=== PATIENT | female | born 1970 | race Caucasian/White ===

== ENCOUNTER → 2016-05-18 | Outpatient (CLI) | payer BC ==
[~2016-05-18] MED LIST: ALPR0.25 PO; ASPI81CH2 PO; CALC500C70 PO; CETI10CH PO; CYAN500T13 PO; ESCI1TAB10 PO; PYRI100T4 PO; TOPI100T20 PO; TOPI50TA16 PO
--- NOTE | 2016-05-18 16:34 | MAMMOGRAPHY REPORT ---
BILATERAL DIGITAL SCREENING MAMMOGRAM TOMOSYNTHESIS WITH CAD: 05/18/2016 CLINICAL HISTORY: Routine screening. Patient has no complaints. TECHNIQUE: Breast tomosynthesis in addition to standard 2D mammography was performed. Current study was also evaluated with a Computer Aided Detection (CAD) system. COMPARISON: Comparison is made to exams dated: 05/17/2015 mammogram, 05/14/2014 mammogram, 03/14/2013 ultrasound, 10/17/2011 ultrasound, and 10/17/2011 mammogram - [facility]. BREAST COMPOSITION: There are scattered areas of fibroglandular density in both breasts. FINDINGS: No suspicious masses, calcifications, or areas of architectural distortion are noted in e ither breast. There has been no significant interval change compared to prior exams. IMPRESSION: ACR BI-RADS CATEGORY 1: NEGATIVE There is no mammographic evidence of malignancy. A 1 year screening mammogram is recommended. The p atient will receive written notification of the results. Approximately 10% of breast cancers are not detected with mammography. A negative mammographic repor t should not delay biopsy if a clinically suggestive mass is present. Sarah Plummer M.D. /:05/18/2016 16:18:34 Behaviorist: Tonia CHANG(R)(M), [facility] letter sent: Normal 1/2 BI-RADS Code: ACR BI-RADS Category 1: Negative
== END | disposition home or self-care (01) ==
LOC: C.MAMM 14:45
PROVIDERS: ATTEND Family Medicine
DX: Z12.31 Encounter for screening mammogram for malignant neoplasm of breast (principal)

== ENCOUNTER → 2017-05-21 | Outpatient (CLI) | payer OTHER ==
--- NOTE | 2017-05-21 15:41 | MAMMOGRAPHY REPORT ---
BILATERAL DIGITAL SCREENING MAMMOGRAM TOMOSYNTHESIS WITH CAD: 05/21/2017 CLINICAL HISTORY: Routine screening. Patient has no complaints. TECHNIQUE: Breast tomosynthesis in addition to standard 2D mammography was performed. Current study was also evaluated with a Computer Aided Detection (CAD) system. COMPARISON: Comparison is made to exams dated: 05/18/2016 mammogram, 05/17/2015 mammogram, 05/14/2014 ma mmogram, 03/14/2013 mammogram, 03/14/2013 ultrasound, and 10/17/2011 ultrasound - [facility]. BREAST COMPOSITION: There are scattered areas of fibroglandular density in both breasts. FINDINGS: The parenchymal pattern is unchanged. No developing mass, architectural distortion or clus ter of suspicious microcalcifications is seen in either breast. IMPRESSION: ACR BI-RADS CATEGORY 2: BENIGN There is no mammographic evidence of malignancy. A 1 year screening mammogram is recommended. The pa tient will receive written notification of the results. Approximately 10% of breast cancers are not detected with mammography. A negative mammographic report should not delay biopsy if a clinically suggestive mass is present. Nakita Quiles M.D. ay/:05/21/2017 14:45:49 Manager Acquisition: Melissa Baeza, [facility] letter sent: Normal 1/2 BI-RADS Code: ACR BI-RADS Category 2: Benign
== END | disposition home or self-care (01) ==
LOC: C.MAMM 14:23
PROVIDERS: ATTEND Family Medicine
DX: Z12.31 Encounter for screening mammogram for malignant neoplasm of breast (principal)

== ENCOUNTER 2022-11-29 05:49 | Observation (INO) ==
--- NOTE | 2022-11-23 10:12 | Anesthesiology Consultation ---
Date of Service November 23, 2022 Assessment & Plan (1) Encounter for pre-operative examination: Plan - Per curriculum and assessment coordinator on 11/22/2022: No known infectious disease contacts, current infectious disease symptoms in past 10 days or COVID positive test result in the past 90 days. Chart Review Chart Review: Acceptable Risk for Surgery and Patient NOT seen in Pre Admission Testing History Surgery Operation Date: 11/29/22 07:30 Proposed Procedures p Bilateral Breast Reduction Mammoplasty - Yanira Garcia MD Height/Weight Height: 5 ft 3 in Weight: 76.204 kg Allergies Allergy/AdvReac Type Severity Reaction Status Date / Time acetaminophen AdvReac Unknown Nausea Verified 11/22/22 08:32 [From Tylenol-Codeine #3] codeine AdvReac Unknown Nausea Verified 11/22/22 08:32 [From Tylenol-Codeine #3] Medications Home Medications Medication Instructions Recorded Confirmed Last Taken aspirin 81 mg tablet,delayed 81 mg PO HS 01/31/20 11/22/22 01/30/20 release bupropion HCl 150 mg tablet,12 hr 150 mg PO QAM 01/31/20 11/22/22 01/31/20 sustained-release cetirizine 10 mg tablet (Zyrtec) 10 mg PO QAM 01/31/20 11/22/22 01/31/20 escitalopram oxalate 20 mg tablet 20 mg PO QAM 01/31/20 11/22/22 01/31/20 rosuvastatin 5 mg tablet 5 mg PO QAM 01/31/20 11/22/22 01/31/20 pantoprazole 40 mg tablet,delayed 40 mg PO QAM 12/13/21 11/22/22 Unknown release oxycodone-acetaminophen 5 mg-325 1 tab PO Q4H PRN pain 3 days #18 11/17/22 11/17/22 Unknown mg tablet (Percocet) tabs alprazolam 0.25 mg tablet 0.25 mg PO BID PRN Anxiety 11/22/22 11/22/22 Unknown Past Medical History Medical History (Updated 11/23/22 @ 10:08 by Talia Putnam PA-C) Acid reflux Anxiety 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 History of blood transfusion 17 yrs ago History of COVID-19 last yr. Seasonal allergies Past Surgical History Surgical History History of arthroscopy of knee left History of carpal tunnel release of both wrists History of colonoscopy History of hysterectomy History of laparoscopy History of toe surgery for cysts. Social History Smoking Status: Never smoker Do You Dip or Chew Tobacco: No alcohol intake frequency: holidays/special occasions only Hx Substance Use: No substance use type: does not use Lab Results Anesthesia Preop Results Results Anesthesia Widget: WBC 4.7 Thousand/uL (3.8-10.8) 11/21/22 Hgb 14.6 g/dL (11.7-15.5) 11/21/22 Hct 45.0 % (35.0-45.0) 11/21/22 Plt 244 Thousand/uL (140-400) 11/21/22 Na 142 mmol/L (135-146) 11/21/22 K 4.4 mmol/L (3.5-5.3) 11/21/22 Cl 105 mmol/L (98-110) 11/21/22 CO2 30 mmol/L (20-32) 11/21/22 BUN 11 mg/dL (7-25) 11/21/22 Creat 0.83 mg/dL (0.50-0.99) 11/21/22 Glucose Level 94 mg/dL (65-99) 11/21/22 PT 10.8 sec (9.0-11.5) 11/21/22 INR 1.0 11/21/22 Testing Other Testing Abdomen pelvis CT 12/13/21 No acute abnormalities and in particular no evidence of diverticulitis.
[2022-11-29] MEDS ORDERED: LR 15ML/HR IV SCH (06:00)
[2022-11-29] MEDS ORDERED: ceFAZolin 2000MG 2,000 MG/15 ML SYR IV SCH (06:00)
[2022-11-29] MEDS ORDERED: TRANEXAMIC ACID 1,000 MG **IV Pre-op IV SCH (06:00)
[2022-11-29] MEDS ORDERED: TRANEXAMIC ACID 1,000 MG **IV Intra-op IV SCH (06:00)
[2022-11-29] MEDS ORDERED: DexMEDEtomidine HCL IV 100 MCG/ML VIAL IV ONE (06:43)
[2022-11-29] MEDS ORDERED: REMIFENTANIL HCL 1 MG VIAL IV ONE (06:43)
--- NOTE | 2022-11-29 06:51 | History & Physical Bridge Note ---
Date of Service November 29, 2022 History & Physical Bridge Note I have examined the patient, reviewed the History & Physical and in the interval since the performance of the History & Physical I have noted the following changes of clinical significance: no changes noted
[2022-11-29] MEDS ORDERED: MIDAZOLAM HCL 1 MG/ML 2ML VIAL ONE (07:10)
[2022-11-29] MEDS ORDERED: fentaNYL citrate PF 100 MCG/2 ML VIAL ONE (07:10)
[2022-11-29] MEDS ORDERED: BUPIVACAINE 0.25% PF 30 ML VIAL ONE (07:22)
[2022-11-29] MEDS ORDERED: LIDOCAINE 2% 2 ML VIAL/AMP(20MG/ML) INFIL ONE (07:23)
[2022-11-29] MEDS ORDERED: GLYCOPYRROLATE 0.2 MG/ML VIAL ONE (07:23)
[2022-11-29] MEDS ORDERED: ROCURONIUM BROMIDE 10 MG/ML 5 ML VIAL IV ONE ×2 (07:23→08:58)
[2022-11-29] MEDS ORDERED: PROPOFOL IV EMULSION 10 MG/ML 20 ML VIAL IV ONE ×2 (07:23→08:19)
[2022-11-29] MEDS ORDERED: DEXAMETHASONE SOD INJ 4 MG/ML VIAL ONE (07:23)
[2022-11-29] MEDS ORDERED: BUPIVACAINE/EPINEPHRINE 0.5% MPF 1:200,000 30 ML VIAL ONE (07:23)
[2022-11-29] MEDS ORDERED: ONDANSETRON INJ 2 MG/ML 2 ML VIAL ONE (07:23)
[2022-11-29] MEDS ORDERED: ePHEDrine sulfate 50 MG/ML AMP ONE (08:16)
[2022-11-29] MEDS ORDERED: diphenhydrAMINE 50 MG/ML VIAL ONE (08:16)
[2022-11-29] MEDS ORDERED: SODIUM CHLORIDE 0.9% PF INJ 10 ML VIAL ONE (08:16)
[2022-11-29] MEDS ORDERED: ATROPINE SULFATE 0.1 MG/ML 10ML SYR IV PRN (10:03)
[2022-11-29] MEDS ORDERED: FLUMAZENIL 0.1 MG/1 ML 10 ML VIAL IV PRN (10:03)
[2022-11-29] MEDS ORDERED: HYDROmorphone INJ 1 MG/ML SYRINGE IV PRN (10:03)
[2022-11-29] MEDS ORDERED: NALOXONE HCL 0.4 MG/1 ML VIAL/CARP IV PRN (10:03)
[2022-11-29] MEDS ORDERED: ONDANSETRON INJ 2 MG/ML 2 ML VIAL IV PRN ×2 (10:03→12:52)
[2022-11-29] MEDS ORDERED: PROMETHAZINE HCL 12.5 MG in SODIUM CHLORIDE 0.9% 50 ML IV PRN ×2 (10:03→12:52)
[2022-11-29] MEDS ORDERED: ePHEDrine sulfate 50 MG/ML AMP IV PRN (10:03)
[2022-11-29] MEDS ORDERED: SUGAMMADEX SODIUM 200 MG/2 ML VIAL IV ONE (10:31)
[2022-11-29] MEDS ORDERED: HYDROmorphone INJ 1 MG/ML SYRINGE ONE (10:49)
--- NOTE | 2022-11-29 11:26 | Post Operative Brief Note ---
PG Immediate Post Op with CF Date of Surgery November 29, 2022 Pre & Post Diagnosis Operation Date: 11/29/22 07:30 Pre-Op Diagnosis: Symptomatic Macromastia Post-Op Diagnosis: Symptomatic Macromastia I identified the patient and participated in the time-out.: Yes Procedure Operation Date: 11/29/22 07:30 Actual Procedures p Bilateral Breast Reduction Mammoplasty - Yanira Garcia MD Surgeon Yanira Garcia MD Mining Speculator Heidi Gomes PA-C Estimated Blood Loss 15 Findings Consistent with Post-Op Diagnosis Specimens Specimen Description: A: Left Breast Tissue weight 564 grams-Fresh (out of room at 0928) B: Right Breast Tissue weight 432grams-Fresh (out of room at 1049) Drains Wiley Catheter (Wiley inserted with difficulty by Mya Lovell RN, Anesthesia to monitor urine output intraoperatively. Wiley drained approximately 400ml. Wiley removed at end of case with balloon intact.) and Other (15 fr channel drain x 2)
[2022-11-29] MEDS: fentaNYL citrate PF 100 MCG/2 ML VIAL IV PRN ×2 (11:38→11:43)
--- NOTE | 2022-11-29 12:15 | Anesthesiology Progress Note ---
Date of Service November 29, 2022 Anesthesia Post Procedure Vital Signs Vital Signs: Temp Pulse Pulse Resp BP Pulse Ox O2 Del Method 11/29/22 11:55 84 13 118/80 98 Nasal Cannula 11/29/22 11:45 83 17 124/77 98 Oxymask 11/29/22 11:35 96 H 18 124/89 100 Oxymask 11/29/22 11:28 36 C L 104 H 18 124/88 100 Oxymask 11/29/22 06:21 36.9 C 90 20 153/93 H 99 Room Air O2 Flow Rate 11/29/22 11:55 2 11/29/22 11:45 4 11/29/22 11:35 6 11/29/22 11:28 6 11/29/22 06:21 Pain Intensity Bilateral Breast: Pain Intensity: 3 Transfer of Care Handoff Completed per policy Notes Mental Status: alert / awake / arousable Patient Amnestic to Procedure: Yes Nausea / Vomiting: adequately controlled Pain: adequately controlled Airway Patency, RR, SpO2: stable & adequate BP & HR: stable & adequate Hydration State: stable & adequate Anesthetic Complications: no major complications apparent
[2022-11-29] MEDS ORDERED: ACETAMINOPHEN 325 MG TAB PO PRN (12:52)
[2022-11-29] MEDS ORDERED: MoRPHine SULFATE 2 MG/ML CARP IV PRN (12:52)
[2022-11-29] MEDS ORDERED: oxyCODONE/ACETAMINOPHEN 5mg/325mg TAB PO PRN (12:52)
[2022-11-29] MEDS ORDERED: diphenhydrAMINE 50 MG/ML VIAL IV PRN (12:52)
[2022-11-29] MEDS ORDERED: LORazepam 0.5 MG TAB PO PRN (12:52)
[2022-11-29] MEDS ORDERED: MoRPHine SULFATE 4 MG/ML 1 ML CARP\\VIAL IV PRN (12:52)
[2022-11-29] MEDS: D5W AND 1/2NSS + 20MEQ KCL 20 MEQ/1,000 ML BAG IV SCH (13:53)
[2022-11-29] MEDS: oxyCODONE/ACETAMINOPHEN 5mg/325mg TAB PO PRN (13:54)
[2022-11-29] MEDS: ceFAZolin 2000MG 2,000 MG/15 ML SYR IV SCH ×2 (15:39→22:48)
--- NOTE | 2022-11-29 16:07 | Operative Report ---
PG Post Operative Report Pre & Post Diagnosis Operation Date: 11/29/22 07:30 Pre-Op Diagnosis: Symptomatic Macromastia Post-Op Diagnosis: Symptomatic Macromastia I identified the patient and participated in the time-out.: Yes Procedure Operation Date: 11/29/22 07:30 Actual Procedures p Bilateral Breast Reduction Mammoplasty - Yanira Garcia MD Surgeon Yanira Garcia MD Vacuum Frame Operator Heidi Gomes PA-C Estimated Blood Loss 15 Findings Consistent with Post-Op Diagnosis Specimens left breast 564 grams, right breast 432 grams to pathology Drains [id number] x2 Anesthesia Type General Complications none Indications back, neck and bilateral shoulder pain secondary to macromastia Description of Procedure The risks, benefits, and alternatives of the procedure were explained to the patient who agreed and signed consent. She was identified and marked in the preoperative holding area. She was brought to the operating room where she was positioned supine and placed under general anesthesia without incident. Surgical site was prepped and draped sterilely. A time-out procedure was performed. I began with the left side. Markings were reassessed and an 8 cm pedicle was marked. 0.5% Marcaine with epinephrine was used to anesthetize the planned incisions. A 42 mm cookie cutter was used to circumscribe the nipple-areolar complex. The previously marked 8 cm pedicle was incised using a 15 blade scalpel and deepithelialized. I began with the medial dissection of the pedicle using electrocautery. Cautery was used to incise through dermis and breast parenchyma down to the chest wall, taking care not to undermine the pedicle during dissection. A similar procedure was undertaken on the lateral aspect of the pedicle again taking care not to undermine. Lastly, the pedicle was dissected out superiorly using electrocautery and this was carried down to the chest wall as well. I then began with excision of the medial breast tissue followed by lateral aspect of the breast tissue and surrounding keyhole incision. A 15 blade scalpel was used to make the inframammary fold incision and electrocautery was used to deepen the incision through dermis and breast parenchyma. Dissection was then carried superiorly to the level of the superior incision. Superior incision was then incised using a 15 blade scalpel and again dissected using electrocautery. This was undertaken laterally and then around the keyhole portion of the incision. Care was taken to leave some fat on the lateral pectoralis fascia in order to protect the T4 intercostal nerve. Hemostasis was achieved with electrocautery. The specimen was passed off in its entirety for weighing. Additional resection was undertaken from the superior flap in order to facilitate closure of the breast and to provide the best shape. The total resection weight of the left breast was 564 grams. The wound was irrigated with saline and hemostasis was achieved with electrocautery. 0.25% Marcaine plain was used to anesthetize the incisions as well as the pectoralis fascia. A 15 Pashto Derrick drain was brought out through a separate stab incision. The nipple-areolar complex was brought into the keyhole using 2-0 Vicryl deep dermal suture. The wound was closed first in a lateral to mid breast direction and then medial to mid breast direction using 2-0 Vicryl deep dermal sutures. Vertical limb was also approxim ated using 2-0 Vicryl deep dermals and the nipple-areolar complex was inset using 2-0 Vicryl deep dermal sutures. Next, the superficial dermal layer was closed using 2-0 PDO running Quill suture along the inframammary fold and 3-0 PDS interrupted dermal sutures along the vertical limb and nipple- areolar complex. Lastly 3-0 Monocryl running subcuticular suture was placed. A similar procedure was undertaken on the right side with maximal excision weight of 432 grams. Breasts were symmetric and nipple-areolar complexes were viable bilaterally following wound closure. Dermabond Prineo was applied along the inframammary fold and vertical limb and Dermabond was placed around the nipple-areolar complex. Dry dressings and a surgical bra were placed. The patient was awakened and transferred to recovery room in satisfactory condition. Heidi Gomes PA-C was present and scrubbed throughout the procedure and was instrumental in providing retraction during dissection of the pedicle and assisting in wound closure. I attest to the content of the Intraoperative Record and any orders documented therein. Any exceptions are noted below.
[2022-11-29] MEDS: diphenhydrAMINE Capsule 25 MG CAP PO PRN (22:48)
[2022-11-30] MEDS: D5W AND 1/2NSS + 20MEQ KCL 20 MEQ/1,000 ML BAG IV SCH (01:02)
[2022-11-30] MEDS: oxyCODONE/ACETAMINOPHEN 5mg/325mg TAB PO PRN ×2 (04:02→09:57)
[2022-11-30] MEDS: diphenhydrAMINE Capsule 25 MG CAP PO PRN (05:52)
[2022-11-30] MEDS ORDERED: ROSUVASTATIN CALCIUM 5 MG TAB PO SCH (09:00)
[2022-11-30] MEDS ORDERED: MULTIVITAMIN TAB PO SCH (09:00)
[2022-11-30] MEDS ORDERED: buPROPion SR 150 MG TABCR PO SCH (09:00)
[2022-11-30] MEDS ORDERED: ESCITALOPRAM OXALATE 20 MG TAB PO SCH (09:00)
[2022-11-30] MEDS ORDERED: PANTOprazole 40 MG TAB PO SCH (09:00)
--- NOTE | 2022-11-30 09:06 | Surgery Progress Note ---
Date of Service November 30, 2022 Assessment & Plan (1) S/P bilateral breast reduction: Plan: Drains removed. She is doing well and will be d/c home this morning. Office follow-up scheduled tomorrow. She understands to start Lovenox today. Admission and Anticipated Discharge Date Admission Date: November 29, 2022 Delmar Panchal is s/p bilat breast reduction. pain is well controlled, she has ambulated and able to void. tolerating regular diet Physical Exam Physical Exam: nipples pink, viable. drains with scant serous output- removed Results & Data Vital Signs (Past 12 Hours) Vital Signs Temp Pulse Resp BP Pulse Ox O2 Del Method 11/30/22 07:23 36.9 C 71 16 99/63 L 94 Room Air 11/30/22 03:08 36.9 C 72 18 100/64 95 Room Air 11/29/22 23:55 37.1 C 67 18 101/64 95 Room Air PG Care Time/CCT Total # of Minutes Spent Total Time Spent with Patient: Total time spent is greater than 50% in coordination of care (as documented) at patient's floor/unit and/or counseling patient: Coding Level of Care Code 68251 Post Operative Follow-Up Diagnoses S/P bilateral breast reduction Z98.890
--- NOTE | 2022-12-01 14:43 | Discharge Summary ---
Date of Service December 01, 2022 Admission HPI Per Admitting Provider History of symptomatic macromastia. Admission Exam Per Admitting Provider macromastia Principal Diagnosis macromastia Discharge Exam nipples pink, viable. drains with scant serous output- removed Discharge Data Allergies Allergy/AdvReac Type Severity Reaction Status Date / Time acetaminophen AdvReac Unknown Nausea Verified 11/29/22 06:14 [From Tylenol-Codeine #3] codeine AdvReac Unknown Nausea Verified 11/29/22 06:14 [From Tylenol-Codeine #3] Procedures Performed Operation Date: 11/29/22 07:30 Actual Procedures p Bilateral Breast Reduction Mammoplasty - Yanira Garcia MD Hospital Course (1) S/P bilateral breast reduction: Patient [facility] with history of symptomatic macromastia. She was taken to the OR and underwent bilateral breast reduction. There were no intraoperative complications. She was taken to recovery and transferred to med/surg for observation. On POD#1, she was feeling well. She was tolerating a regular diet and ambulating. On exam, her vitals were stable. Her incisions were CDI and nipples viable. Her drains were removed. She was discharged home with instructions to follow-up in the office in one day. Total Time Total Time Spent Total Time Spent (In Minutes): 15 Total Time Includes: Examination of the Patient, Discharge Planning and Communication With Other Providers Discharge Plan Discharge Items Patient Disposition: Home - Self-Care Reason For Visit: Symptomatic Macromastia Discharge Diagnosis: s/p bilateral breast reduction Activity: As commented below Non-emergency contact: Surgeon Call non-emergency contact if: you have any medication questions, your pain is not controlled, you have a fever, your wound has increased redness and your wound has increased drainage Follow-up/Referrals: Heidi Gomes PA-C [Physician Sales Representative [employer]] - (Appointments already scheduled.) David Hung MD [Primary Care Provider] - Diet: Regular Addtl Attending Provider Instructions: ACTIVITY RECOMMENDATIONS: __Normal activities _x_No bending, lifting or straining __No driving __Driving allowed when you are off pain medications _x_Walking permitted __You should have help at home for ___ days DRESSINGS: __No dressings required _x_Keep dressings dry/in place until first office visit __Remove dressings ___ and leave dressings off __Apply ice ___ days __Remove dressings and reapply garment __Apply antibiotic ointment (Bacitracin, Neosporin, etc) to wounds 3-4 times/day for 10 days BATHING: _x_Keep dressings dry _x_Sponge bathing permitted __Showering permitted __No swimming, hot tubs or soaking in a tub MEDICATIONS: Resume previous medications unless instructed otherwise by your surgeon. _x_Do not use aspirin, Motrin, Advil or Ibuprofen as these may promote bleeding. Please use Tylenol. _x_Prescription(s) provided: pain medication provided at your last office visit OTHER INSTRUCTIONS: __Record drain output 2-3 times per day SPECIAL CARE INSTRUCTIONS: * It is normal to have a mild fever after surgery. If your temperature is higher than 101.5 degrees F, please call the office at [phone]. * Constipation is a typical side effect of pain medication. An yiot-nfy-tevgcyo stool softener will help relieve this. * Leaking around surgical drains may occur and should not cause concern. Sometimes these drains become clogged. If this happens, remove the bulb and milk the clot out of the tube, then replace the bulb. * Drainage from wounds after liposuction is normal and should be expected. Garments will become soiled. You should protect furniture and bedding. This drainage should mostly subside within 2-3 days. Leave garments in place unless instructed to remove them. * If you have unusual drainage from a wound or are concerned you have an infection or have any questions or concerns, please call the office at [phone]. FOLLOW UP VISIT: If not already scheduled, please call the office, , when you return home after surgery to schedule an appointment to be seen in _1__ days. Pending Studies at Discharge: Yes Stand-Alone Forms: [employer], Smoking Cessation Medications and DC Order Prescriptions: Continued oxycodone-acetaminophen [Percocet] 5-325 mg tablet 1 tab PO Q4H PRN (Reason: pain) 3 Days Qty: 18 0RF Rx Instructions: Initial therapy. bupropion HCl 150 mg tablet sustained-release 12 hr 150 mg PO QAM cetirizine [Zyrtec] 10 mg Tablet 10 mg PO QAM escitalopram oxalate 20 mg tablet 20 mg PO QAM rosuvastatin 5 mg tablet 5 mg PO QAM alprazolam 0.25 mg Tablet 0.25 mg PO BID PRN (Reason: Anxiety) pantoprazole 40 mg tablet,delayed release (DR/EC) 40 mg PO QAM Discontinued aspirin [Aspir-Low] 81 mg Tablet,Delayed Release (Dr/Ec) 81 mg PO HS No Action oxycodone-acetaminophen [Percocet] 5-325 mg tablet 1 tab PO Q4H PRN (Reason: pain) Qty: 20 0RF Rx Instructions: Continued therapy. Discharge Orders: Discharge Order (Routine); Ordered 11/30/22 Ordered By: Heidi Gomes Admission Data Admit Date/Time: 11/29/22 11:31 Attending Provider: Yanira Garcia Admit Provider: Yanira Garcia Primary Care Provider: David Hung Other Interventions: Discharge Summary Assessment (RN) Last Done: 11/30/22 10:44 Coding Level of Care Code 18123 OBS Care - Discharge Diagnoses S/P bilateral breast reduction Z98.890
== END 2022-11-30 11:42 | disposition home or self-care (01) ==
LOC: 3E 05:49 → ASU 05:49